=== PATIENT | female | born 1985 | race Caucasian/White ===

== ENCOUNTER 2017-02-04 21:59 | Emergency (ER) | payer SELFPAY ==
[~2017-02-04] VITALS: Ht 147.3 cm; Wt 60.0 kg
[2017-02-04 22:22] VITALS: Ht 147.3 cm; Wt 60.0 kg
== END 2017-02-04 23:39 | disposition left against medical advice (07) ==
LOC: FTE 21:59
DX: Z53.21 Procedure and treatment not carried out due to patient leaving prior to being seen by health care provider (principal)

== ENCOUNTER 2017-08-17 19:07 | Emergency (ER) | payer MEDICAID ==
[~2017-08-17] VITALS: Ht 152.4 cm; Wt 66.5 kg
[2017-08-17 19:17] VITALS: Ht 152.4 cm; Wt 66.5 kg
--- NOTE | 2017-08-17 21:16 | RADRPT ---
PROCEDURE: Portable chest x-ray. CLINICAL INDICATION: Shortness of breath. TECHNIQUE: Portable AP view of the chest. COMPARISON: None. FINDINGS: No pulmonary edema or conolidation is identified. The cardiac silhouette is magnified. No pleural effusion is seen. There is no pneumothorax. IMPRESSION: 1. No evidence of acute cardiopulmonary disease. RPTAT: HTAR .Marko Sharma MD, MD Date Time Electronically viewed and signed by .Marko Sharma MD, on 08/17/2017 21:16 .R/
[2017-08-17] MEDS ORDERED: BENZ100C70 PO (21:22)
[2017-08-17] MEDS ORDERED: ACET325T33 PO (21:22)
[2017-08-17] MEDS ORDERED: ALBU8.5H3 INH (21:23)
[2017-08-17] MEDS ORDERED: LORA-186 PO (21:23)
--- NOTE | 2017-08-17 21:29 | ERD ---
ER Documentation Chief Complaint Chief Complaint SOB x 2days, satting perfect now HPI Is a 32-year-old female presenting to the emergency department complaining of cough, sore throat, ear pain and shortness of breath for the past 2 days. Patient denies any history of asthma. She denies any fevers, vomiting diarrhea. She denies any chest pain. Patient denies any other medical problems ROS All systems reviewed and are negative except as per history of present illness. Medications Home Meds Active Scripts Albuterol Sulfate* (Proair HFA*) 8.5 Gm Hfa.aer.ad, 2 PUFF INH Q4, #1 INHALER Prov:MILEY EL PA-C 08/17/17 Loratadine* (Claritin*) 10 Mg Tablet, 10 MG PO DAILY, #30 TAB Prov:MILEY EL PA-C 08/17/17 Benzonatate* (Tessalon Perle*) 100 Mg Capsule, 100 MG PO Q8H Y for COUGH, #30 CAP Prov:MILEY EL PA-C 08/17/17 Acetaminophen* (Tylenol*) 325 Mg Tablet, 2 TAB PO Q4 Y for PAIN AND OR ELEVATED TEMP, #30 TAB Prov:MILEY EL PA-C 08/17/17 Allergies Allergies: Coded Allergies: No Known Allergy (Unverified , 02/04/17) PMhx/Soc Medical and Surgical Hx: pt denies Medical Hx, pt denies Surgical Hx History of Surgery: No Anesthesia Reaction: No Hx Neurological Disorder: No Hx Respiratory Disorders: No Hx Cardiac Disorders: No Hx Psychiatric Problems: No Hx Miscellaneous Medical Probl: No Hx Alcohol Use: No Hx Substance Use: Yes (MJ) Hx Tobacco Use: Yes Smoking Status: Current some day smoker Physical Exam Vitals Vital Signs Date Time Temp Pulse Resp B/P Pulse Ox O2 Delivery O2 Flow Rate FiO2 08/17/17 19:17 99.5 88 18 100/58 99 Physical Exam GENERAL: well-developed/well-nourished, in no apparent distress, non-toxic appearing HEAD: NC/AT, no swelling noted in frontal or maxillary areas EARS: bilateral tympanic membrane is intact without erythema or effusion NARES: congested THROAT:NONERYTHEMATOUS EYES: Conjunctiva normal NECK: Supple, no lymphadenopathy PULM: CTA bilaterally, no rales, rhonchi, or wheezing heard CV: Normal S1S2, RRR, good capillary refill GI: Soft, non-distended, normal bowel sounds, non-tender BACK: No midline tenderness, no masses EXT No clubbing, cyanosis, or edema NEURO: Alert and Orientated SKIN: Intact, normal turgor PSYCH: Normal mood and mentation Procedures/MDM Is a 32-year-old female presenting to the emergency department complaining of cough and shortness of breath for the past 2 days. Patient appears well, she is saturating well on room air. There was no evidence of infiltrates on exam. Her lungs were clear to auscultation bilaterally. Chest x-ray did not show any evidence of infiltrates, pneumothorax or pleural effusion. Low suspicion for pulmonary embolism. Patient was given prescription for Claritin, ProAir air, Tessalon Perles and discuss to follow-up with primary care physician Departure Diagnosis: Primary Impression: URI (upper respiratory infection) Condition: Stable Patient Instructions: Coping with Shortness of Breath: Controlling Stress, Uri , Viral, No Abx (Adult) Additional Instructions: FOLLOW UP WITH YOUR PRIMARY CARE PHYSICIAN TOMORROW.Return to this facility if you are not improving as expected. Take all medicines as directed. Return to this facility if you are not improving as expected. MILEY EL PA-C Aug 17, 2017 21:29
[2017-08-17 22:19] VITALS: BP 99/20; PULSE 74
== END 2017-08-17 22:22 | disposition home or self-care (01) ==
LOC: FTE 19:07
DX: J06.9 Acute upper respiratory infection, unspecified (principal); F17.210 Nicotine dependence, cigarettes, uncomplicated
CPT/HCPCS: 71010; Z7502